=== PATIENT | female | born 1985 | race African-American/Black ===

== ENCOUNTER 2019-11-13 00:46 | Emergency (ER) | payer OTHER ==
[2019-11-13 01:42] VITALS: BMI 25.7
--- NOTE | 2019-11-13 02:19 | PDOC ---
History of Present Illness - General Chief Complaint: Cold Symptoms Stated Complaint: COUGHING,FEVER,HEADACHE,WEAK Time Seen by Provider: 11/13/19 02:11 Past History - Past Medical History Allergies/Adverse Reactions: Allergies Allergy/AdvReac Type Severity Reaction Status Date / Time No Known Allergies Allergy Verified 11/13/19 01:40 Home Medications: Ambulatory Orders NK [No Known Home Medication] 11/13/19 - Psycho Social/Smoking Cessation Hx Smoking History: Never smoked Have you smoked in the past 12 months: No Information on smoking cessation initiated: No Hx Alcohol Use: No Drug/Substance Use Hx: No *Physical Exam - Vital Signs Last Vital Signs Temp Pulse Resp BP Pulse Ox 98.0 F 69 20 116/75 100 11/13/19 01:05 11/13/19 01:05 11/13/19 01:05 11/13/19 01:05 11/13/19 01:05 ED Treatment Course - LABORATORY CBC & Chemistry Diagram: 11/13/19 03:20 11/13/19 03:20 Medical Decision Making - Medical Decision Making 11/13/19 02:50 HPI: 34yo F hx sickle cell disease, anemia, reflux, and HPV presents from home with 5 days of productive cough, fever, bitemporal pressure type headache intermittent improved with advil at 2030 today, generalized weakness, rhinorrhea , and slight chest discomfort only when coughs. Normal PO intake. +sick contacts (works as [employer]). Got flu shot this year. Denies recent travel. Appt with PCP Lencho Onofre at 1215 today but came in because couldn't deal with pain of headache. Only tried 1 advil at 2030 today with some improvement, no other meds tried. Denies sore throat, ear pain, dizziness, numbness/tingling, weakness , vision changes, shortness of breath, palpitations, leg swelling, abdominal pain, blood in stool, diarrhea, constipation, nausea, vomiting, dysuria, hematuria, confusion. ROS: Constitutional: Positive for fever, fatigue. Negative for diaphoresis. HENT: Positive for rhinorrhea, congestion. Negative for sore throat, ear pain. Eyes: Negative for visual disturbance. Respiratory: Positive for cough. Negative for shortness of breath, and wheezing. Cardiovascular: Positive for chest discomfort with cough. Negative for chest pain, palpitations, and leg swelling. Gastrointestinal: Negative for abdominal pain, blood in stool, constipation, diarrhea, nausea, and vomiting. Genitourinary: Negative for dysuria, flank pain, and hematuria. Musculoskeletal: Negative for myalgias, back pain, and neck pain. Skin: Negative for rash. Neurological: Positive for headache. Negative for light-headedness, dizziness, vertigo, syncope, weakness, numbness. Psychiatric/Behavioral: Negative for behavioral problems and confusion. PE: Gen: Alert, NAD, comfortable but tired-appearing. HEENT: PERRL, EOMI, MMM, NCAT. No conjunctival pallor. Sclera are non-icteric. Oropharynx is clear. CV: Regular rate and rhythm. No murmurs, rubs, or gallops. PULM: No resp distress. CTAB, no wheezes, rales, or rhonchi. ABD: soft, NT/ND, no rebound tenderness or guarding, no CVA tenderness. BACK: No TTP of c/t/l-spine. No step-offs or deformities. MSK: No bony deformities. 2+ pulses in all extremities. NEURO: AAOx3. PERRL. No gross CN deficits. Strength and sensation grossly intact throughout. EXTREMITIES: No cyanosis. No clubbing. No edema. No calf tenderness. PSYCH: Normal mood and thought pattern. SKIN: Warm and dry. Normal capillary refill. No rashes. No jaundice. MDM: 34yo F hx sickle cell disease, anemia, reflux, and HPV presents from home with 5 days of productive cough, fever, bitemporal pressure type headache intermittent improved with advil at 2030 today, generalized weakness, rhinorrhea , and slight chest discomfort only when coughs. Hemodynamically stable, afebrile , tired-appearing but otherwise benign exam. Ddx: most likely viral URI. Also consider bronchitis, PNA, metabolic derangement , anemia, ACS/WI, arrhythmia. No e/o acute chest or acute pain crises. -EKG -CXR -CBC,CMP,Mg,Phos,Cardiac profile -IVF -Pain management: tylenol -Dispo: pending workup and reassessment, likely d/c home 11/13/19 05:07 Labs reviewed. No concerning findings. EKG reviewed: sinus bradycardia, 57bpm, normal axis, normal intervals, no TWIs, no ST elevations or depressions, no prior EKG for comparison CXR reviewed: No acute pathology Pt improved s/p tylenol, wants to go home Will dc home with PCP f/u. Return precautions given. Pt understands all dc instructions and all questions were answered. Discharge - Discharge Information Problems reviewed: Yes Clinical Impression/Diagnosis: Cough Condition: Improved Disposition: HOME - Admission No - Follow up/Referral Referrals: Lencho Onofre MD [Primary Care Provider] - - Patient Discharge Instructions Patient Printed Discharge Instructions: DI for Viral Upper Respiratory Infection -- Adult Additional Instructions: You have been seen in the Emergency Department for your cough and headache. Your labs, EKG, and chest X-ray show no signs of an emergent condition such as pneumonia (lung infection) or heart attack. You most likely have a viral infection. At this time it's most important to stay hydrated and get plenty of rest. Follow-up with your primary care doctor within 1 week. Return to the Emergency Department immediately with any new or concerning symptoms including chest pain, difficulty breathing, coughing up blood, or passing out. - Post Discharge Activity Work/Back to School Note: Back to Work
--- NOTE | 2019-11-13 02:49 | PDOC ---
Attending Attestation - Resident Resident Name: Bhavya Yen - ED Attending Attestation I have performed the following: I have examined & evaluated the patient, The case was reviewed & discussed with the resident, I agree w/resident's findings & plan, Exceptions are as noted - HPI HPI: 11/19/19 20:01 See resident HPI - Physicial Exam PE: 11/19/19 20:01 Agree with documented exam - Medical Decision Making 11/19/19 20:01 34F hx of sickle trait? sick cell disease? here with 5 days of progressive illness characterized by productive cough, rhinorrhea, subjective fevers, generalized aches and weakness, and LUND that is slow onset, typical for her, non- exertional, improves with NSAIDs, MDM: 34yo F hx sickle cell disease, anemia, reflux, and HPV presents from home with 5 days of productive cough, fever, bitemporal pressure type headache intermittent improved with advil at 2030 today, generalized weakness, rhinorrhea , and slight chest discomfort only when coughs. Hemodynamically stable, afebrile , tired-appearing but otherwise benign exam. Sickle cell etiology unclear, hpi inconsistent with pain crisis, less concern for acute chest consider viral URI, pna, less likely acs, mi, metabolic, electorlyte derangement f/u cxr, labs symptomatic tx dispo per clinical course
[2019-11-13] MEDS ORDERED: ACETAMINOPHEN 1000 MG/100 ML VIAL (NON FORMULARY) IVPB ONE (03:04)
[2019-11-13] MEDS ORDERED: SODIUM CHLORIDE 0.9% 500 ML INFUS.BAG IV ONE (03:04)
[2019-11-13] MEDS ORDERED: ACETAMINOPHEN INJECTION 100 ML IVPB ONE (03:10)
[2019-11-13 03:52] LABS: BASO % 0.9 % (0-2.0); EOS % 2.3 % (0-4.5); HEMATOCRIT 34.9 % (32.4-45.2); HEMOGLOBIN 11.7 GM/dL (10.7-15.3); LYMPH % 34.7 % (8-40); MCH 27.5 pg (25.7-33.7); MCHC 33.6 g/dl (32.0-36.0); MEAN CELL VOLUME 81.9 fl (80-96); MEAN PLT VOLUME 8.3 fl (7.5-11.1); MONO % 17.9 % (3.8-10.2); NEUT % 44.2 % (42.8-82.8); PLATELET COUNT 233 K/MM3 (134-434); RBC 4.26 M/mm3 (3.60-5.2); RDW 13.9 % (11.6-15.6); WHITE BLOOD COUNT 3.3 K/mm3 (4.0-10.0)
[2019-11-13 04:20] LABS: ALBUMIN 3.9 g/dl (3.4-5.0); BILIRUBIN,TOTAL 0.1 mg/dL (0.2-1); BLOOD UREA NITROGEN 7.8 mg/dL (7-18); CALCIUM 8.6 mg/dL (8.5-10.1); MAGNESIUM 2.4 mg/dL (1.8-2.4); PHOSPHOROUS 3.5 mg/dL (2.5-4.9); POTASSIUM 4.3 mmol/L (3.5-5.1); TOT PROT 7.9 g/dl (6.4-8.2)
[2019-11-13 05:38] VITALS: BP 100/65; PULSE 62; TEMP 97.8
--- NOTE | 2019-11-13 12:26 | EKG ---
Test Reason : Blood Pressure : / mmHG Vent. Rate : 057 BPM Atrial Rate : 057 BPM P-R Int : 142 ms QRS Dur : 082 ms QT Int : 428 ms P-R-T Axes : 056 075 061 degrees QTc Int : 416 ms SINUS BRADYCARDIA NO PREVIOUS ECGS AVAILABLE Confirmed by CARLTON KAHN MD ([id number]) on 11/13/2019 12:26:06 PM Referred By: Confirmed By:CARLTON KAHN MD
== END 2019-11-13 05:45 | disposition home or self-care (01) ==
LOC: JER 00:46
PROC: 3E033NZ Introduction of Analgesics, Hypnotics, Sedatives into Peripheral Vein, Percutaneous Approach (ICD-10-PCS; principal; 2019-11-13)
DX: R05 Cough (principal); B97.89 Other viral agents as the cause of diseases classified elsewhere
CPT/HCPCS: 36415; 71046-TC-FY; 80053; 82550; 83735; 84100; 84484; 85025; 93005; 93010; 99285-25; J0131

== ENCOUNTER 2020-04-18 04:55 | Day surgery (SDC) | payer OTHER ==
[2020-04-15 12:12] VITALS: BMI 26.1
[2020-04-18] MEDS ORDERED: IBUPROFEN 400 MG TABLET (FP) PO PRN (10:45)
[2020-04-18] MEDS ORDERED: ACETAMINOPHEN 325 MG TABLET (FP) PO PRN (10:45)
[2020-04-18] MEDS ORDERED: oxyCODONE HCL 5 MG TABLET PO PRN ×2 (10:45→14:11)
--- NOTE | 2020-04-18 10:46 | HP ---
History & Physical Update - History History: No Change - Physical Physical: No Change - Assessment Assessment: No Change - Plan Plan: No Change (No Change HP)
[2020-04-18] MEDS ORDERED: SUCCINYLCHOLINE CHLORIDE 200 MG/10 ML SYRINGE ONE (13:07)
[2020-04-18] MEDS ORDERED: MIDAZOLAM HCL 2 MG/2 ML SINGLE DOSE VIAL ONE (13:07)
[2020-04-18] MEDS ORDERED: PROPOFOL 20 ML ONE (13:07)
[2020-04-18] MEDS ORDERED: KETOROLAC TROMETHAMINE 30 MG/1 ML VIAL ONE (13:36)
[2020-04-18] MEDS ORDERED: DEXAMETHASONE SOD PHOSPHATE 4 MG/1 ML VIAL ONE (13:36)
[2020-04-18] MEDS ORDERED: ONDANSETRON 4 MG/2 ML VIAL IVPUSH PRN (14:11)
[2020-04-18] MEDS ORDERED: LACTATED RINGERS SOLUTION 1,000 ML IV SCH (14:15)
[2020-04-18 17:00] VITALS: BP 108/61; PULSE 56; TEMP 97.7
--- NOTE | 2020-04-20 18:03 | PATH ---
Surgical Pathology Report Patient Name: YANELI NATION [facility]. Rec. #: [id number] /Age/Gender: 1985 (Age: 35) / F Account: [id number] Location: [facility] Taken: 04/18/2020 Received: 04/19/2020 Reported: 04/20/2020 Physicians: Elissa Schreiber M.D. Specimen(s) Received CONTENT OF UTERUS Clinical History Endometrial polyp/fibroid Final Diagnosis CONTENTS OF UTERUS, HYSTEROSCOPIC MYOMECTOMY, SUCTION DILATION AND CURETTAGE: 1G, FRAGMENTS OF ENDOMETRIAL POLYP, SECRETORY ENDOMETRIUM, AND FIBROMUSCULAR TISSUE CONSISTENT WITH SUBMUCOSAL LEIOMYOMA. Electronically Signed Suzanne Jo M.D. Addendum Reported: 04/21/2020 Addendum Diagnosis Additional scant fragments of benign cervical tissue are noted. Suzanne Jo M.D. Gross Description Received in formalin labeled "contents of uterus," is a 1 g, 3.0 x 2.5 x 0.4 cm aggregate of paris soft tissue fragments. The formalin is filtered and the specimen is entirely submitted in 2 cassettes. DL/04/19/2020 saudi/04/19/2020
--- NOTE | 2020-04-27 17:20 | OP ---
DATE OF OPERATION: 04/18/2020 PREOPERATIVE DIAGNOSIS: Endometrial polyp. OPERATION: Hysteroscopic myomectomy, suction dilatation and curettage. POSTOPERATIVE DIAGNOSIS: Endometrial polyp. SURGEON: Elissa Schreiber MD ESTIMATED BLOOD LOSS: Approximately 20 mL. DESCRIPTION OF PROCEDURE: Patient was taken to the operating room, placed in dorsal lithotomy position, prepped and draped in the usual sterile fashion. Timeout was performed in accordance with hospital regulation. Speculum was placed in the vagina. Anterior lip of the cervix was grasped with single-tooth tenaculum. Cervix then dilated to accommodate the operative hysteroscope. Visualization revealed a large endometrial polyp. Cautery and cutting of the polyp was done. Specimen was submitted to pathology, followed by suction D and C. Patient had tolerated the procedure well, was taken to recovery room in stable condition after all instruments were removed. ELISSA SCHREIBER M.D. [id number]
== END 2020-04-18 16:35 | disposition home or self-care (01) ==
LOC: JASU-SURG 04:55
PROVIDERS: ATTEND Obstetrics & Gynecology
PROC: 0UJD8ZZ Inspection of Uterus and Cervix, Via Natural or Artificial Opening Endoscopic (ICD-10-PCS; 2020-04-18)
PROC: 0UB98ZZ Excision of Uterus, Via Natural or Artificial Opening Endoscopic (ICD-10-PCS; principal; 2020-04-18 12:00)
PROC: 0UDB7ZX Extraction of Endometrium, Via Natural or Artificial Opening, Diagnostic (ICD-10-PCS; 2020-04-18 12:00)
DX: N84.0 Polyp of corpus uteri (principal); D25.0 Submucous leiomyoma of uterus
CPT/HCPCS: 88305-TC; 94760

== ENCOUNTER 2021-03-13 03:40 | Emergency (ER) | payer OTHER ==
[2021-03-13 03:54] VITALS: BMI 25.7
[2021-03-13] MEDS ORDERED: SODIUM CHLORIDE 1,000 ML IV STA (04:13)
[2021-03-13] MEDS ORDERED: morphine CARPU-JECT 2 MG/1 ML DISP.SYRIN IVPUSH ONE (04:31)
[2021-03-13 04:36] LABS: BASO % 0.8 % (0-2.0); EOS % 2.1 % (0-4.5); HEMATOCRIT 38.2 % (32.4-45.2); HEMOGLOBIN 13.3 GM/dL (10.7-15.3); LYMPH % 25.1 % (8-40); MCH 28.9 pg (25.7-33.7); MCHC 34.8 g/dl (32.0-36.0); MEAN CELL VOLUME 82.9 fl (80-96); MEAN PLT VOLUME 8.2 fl (7.5-11.1); MONO % 13.1 % (3.8-10.2); NEUT % 58.9 % (42.8-82.8); PLATELET COUNT 198 K/MM3 (134-434); RDW 12.8 % (11.6-15.6); WHITE BLOOD COUNT 5.3 K/mm3 (4.0-10.0)
[2021-03-13 04:48] LABS: INR 0.92 (0.83-1.09); PROTHROMBIN TIME (PATIENT) 11.3 SEC (9.7-13.0)
[2021-03-13 04:50] LABS: ACTIVATED PTT 26.3 SECONDS (25.2-36.5)
[2021-03-13] MEDS ORDERED: MORPHINE SULFATE 2 MG/ML VIAL ONE (04:52)
[2021-03-13 04:57] LABS: ALBUMIN 3.9 g/dl (3.4-5.0); BLOOD UREA NITROGEN 11.6 mg/dL (7-18); CALCIUM 9.1 mg/dL (8.5-10.1)
[2021-03-13 05:00] LABS: CREATININE 0.9 mg/dL (0.55-1.3)
[2021-03-13 05:02] LABS: BILIRUBIN,TOTAL 0.3 mg/dL (0.2-1); TOT PROT 7.8 g/dl (6.4-8.2)
[2021-03-13 07:02] LABS: EPI CELLS 2 /uL (0-25.1); HYALINE CASTS 0 /uL (0-3.1); PH,URINE 6.5 (5.0-8.0); URINE APPEARANCE CLEAR; URINE BACTERIA 10 /uL (0-1359); URINE BILIRUBIN NEGATIVE (NEGATIVE); URINE COLOR YELLOW; URINE GLUCOSE (UA) NEGATIVE (NEGATIVE); URINE KETONE NEGATIVE (NEGATIVE); URINE LEUK ESTERASE NEGATIVE (NEGATIVE); URINE NITRITE NEGATIVE (NEGATIVE); URINE PROTEIN NEGATIVE (NEGATIVE); URINE RBC 21 /uL (0-23.9); URINE UROBILINOGEN 0.2 mg/dL (0.2-1.0); URINE WBC 1 /uL (0-25.8)
[2021-03-13 10:49] VITALS: BP 95/55; PULSE 62; TEMP 98.4
== END 2021-03-13 10:55 | disposition home or self-care (01) ==
LOC: JER 03:40
PROC: 3E033NZ Introduction of Analgesics, Hypnotics, Sedatives into Peripheral Vein, Percutaneous Approach (ICD-10-PCS; principal; 2021-03-13)
PROC: 3E0337Z Introduction of Electrolytic and Water Balance Substance into Peripheral Vein, Percutaneous Approach (ICD-10-PCS; 2021-03-13)
DX: N93.8 Other specified abnormal uterine and vaginal bleeding (principal)
CPT/HCPCS: 36415; 76830-TC; 80053; 81003; 83690; 84703; 85025; 85610; 85730; 86850; 86900; 86901; 87077; 87086; 99284-25

== ENCOUNTER 2021-04-06 21:27 | Observation (INO) | payer OTHER ==
[2021-04-06 21:38] VITALS: BMI 26.6
[2021-04-06] MEDS ORDERED: SODIUM CHLORIDE 0.9% 1000 ML INFUS.BAG IV ONE (21:58)
[2021-04-06] MEDS ORDERED: morphine CARPU-JECT 4 MG/1 ML DISP.SYRIN IVPUSH ONE (21:58)
[2021-04-06] MEDS ORDERED: ONDANSETRON 4 MG/2 ML VIAL IVPUSH ONE (21:58)
[2021-04-06] MEDS ORDERED: morphine SULFATE 4 MG/ML VIAL ONE (22:08)
[2021-04-06] MEDS ORDERED: ONDANSETRON 4 MG/2 ML VIAL ONE (22:08)
[2021-04-06 22:21] LABS: BASO % 0.8 % (0-2.0); EOS % 0.6 % (0-4.5); HEMATOCRIT 39.7 % (32.4-45.2); HEMOGLOBIN 13.4 GM/dL (10.7-15.3); LYMPH % 19.2 % (8-40); MCH 28.5 pg (25.7-33.7); MCHC 33.8 g/dl (32.0-36.0); MEAN CELL VOLUME 84.1 fl (80-96); MEAN PLT VOLUME 8.1 fl (7.5-11.1); MONO % 9.3 % (3.8-10.2); NEUT % 70.1 % (42.8-82.8); PLATELET COUNT 205 10^3/uL (134-434); RBC 4.71 M/mm3 (3.60-5.2); WHITE BLOOD COUNT 7.1 K/mm3 (4.0-10.0)
[2021-04-06 22:52] LABS: ALBUMIN 4.2 g/dl (3.4-5.0); BLOOD UREA NITROGEN 13.7 mg/dL (7-18)
[2021-04-06 22:55] LABS: CREATININE 1.2 mg/dL (0.55-1.3)
[2021-04-06 22:57] LABS: BILIRUBIN,TOTAL 0.2 mg/dL (0.2-1)
[2021-04-06] MEDS ORDERED: KETOROLAC TROMETHAMINE 15 MG/ML VIAL ONE (23:22)
[2021-04-06 23:26] LABS: EPI CELLS 3 /uL (0-25.1); HYALINE CASTS 0 /uL (0-3.1); PH,URINE >= 9.0 (5.0-8.0); URINE APPEARANCE CLEAR; URINE BACTERIA 20 /uL (0-1359); URINE BILIRUBIN NEGATIVE (NEGATIVE); URINE COLOR YELLOW; URINE GLUCOSE (UA) NEGATIVE (NEGATIVE); URINE KETONE NEGATIVE (NEGATIVE); URINE LEUK ESTERASE NEGATIVE (NEGATIVE); URINE NITRITE NEGATIVE (NEGATIVE); URINE PROTEIN NEGATIVE (NEGATIVE); URINE RBC 50 /uL (0-23.9); URINE UROBILINOGEN 0.2 mg/dL (0.2-1.0); URINE WBC 1 /uL (0-25.8)
[2021-04-06] MEDS ORDERED: KETOROLAC TROMETHAMINE 15 MG/ML VIAL IVPUSH ONE (23:33)
[2021-04-07] MEDS ORDERED: SODIUM CHLORIDE 1,000 ML IV SCH (02:45)
[2021-04-07 12:31] LABS: BASO % 0.5 % (0-2.0); EOS % 0.5 % (0-4.5); HEMATOCRIT 35.2 % (32.4-45.2); HEMOGLOBIN 11.8 GM/dL (10.7-15.3); LYMPH % 16.1 % (8-40); MCH 28.4 pg (25.7-33.7); MCHC 33.5 g/dl (32.0-36.0); MEAN CELL VOLUME 84.6 fl (80-96); MEAN PLT VOLUME 8.8 fl (7.5-11.1); NEUT % 71.9 % (42.8-82.8); PLATELET COUNT 170 10^3/uL (134-434); RBC 4.15 M/mm3 (3.60-5.2); RDW 13.2 % (11.6-15.6)
[2021-04-07] MEDS: DEXTROSE 5%-0.45% SALINE 1,000 ML IV SCH (12:38)
[2021-04-07 12:57] LABS: ALBUMIN 3.4 g/dl (3.4-5.0)
[2021-04-07 12:59] LABS: CALCIUM 8.3 mg/dL (8.5-10.1)
[2021-04-07 13:00] LABS: CREATININE 0.9 mg/dL (0.55-1.3)
[2021-04-07 13:01] LABS: BILIRUBIN,TOTAL 0.6 mg/dL (0.2-1); TOT PROT 6.6 g/dl (6.4-8.2)
[2021-04-07] MEDS: ACETAMINOPHEN 1000 MG/100 ML VIAL (NON FORMULARY) IVPB PRN (16:23)
[2021-04-07] MEDS: POLYETHYLENE GLYCOL (HEALTHYLAX) 3350 17 GM PACKET PO SCH ×2 (16:24→21:18)
[2021-04-08] MEDS: DEXTROSE 5%-0.45% SALINE 1,000 ML IV SCH ×3 (05:51→17:28)
[2021-04-08] MEDS: POLYETHYLENE GLYCOL (HEALTHYLAX) 3350 17 GM PACKET PO SCH ×3 (05:51→22:20)
[2021-04-08 08:10] LABS: BASO % 0.9 % (0-2.0); EOS % 3.2 % (0-4.5); HEMATOCRIT 32.6 % (32.4-45.2); HEMOGLOBIN 11.1 GM/dL (10.7-15.3); LYMPH % 36.1 % (8-40); MCH 28.7 pg (25.7-33.7); MEAN CELL VOLUME 84.5 fl (80-96); MEAN PLT VOLUME 8.3 fl (7.5-11.1); MONO % 14.2 % (3.8-10.2); NEUT % 45.6 % (42.8-82.8); PLATELET COUNT 161 10^3/uL (134-434); RBC 3.86 M/mm3 (3.60-5.2); RDW 13.3 % (11.6-15.6); WHITE BLOOD COUNT 2.6 K/mm3 (4.0-10.0)
[2021-04-08 08:37] LABS: CALCIUM 8.3 mg/dL (8.5-10.1)
[2021-04-08 08:38] LABS: ALBUMIN 3.2 g/dl (3.4-5.0); BLOOD UREA NITROGEN 8.2 mg/dL (7-18)
[2021-04-08 08:40] LABS: CREATININE 0.9 mg/dL (0.55-1.3)
[2021-04-08 08:42] LABS: BILIRUBIN,TOTAL 0.6 mg/dL (0.2-1); TOT PROT 6.5 g/dl (6.4-8.2)
[2021-04-08] MEDS ORDERED: PT OWN MED DRAWER 7, Y5N ONE (09:35)
[2021-04-08] MEDS: FOLIC ACID 1 MG TABLET (FP) PO SCH (09:54)
[2021-04-08] MEDS: PANTOPRAZOLE 40 MG TABLET PO SCH (09:54)
[2021-04-08] MEDS: MAGNESIUM CITRATE 300 ML BOTTLE PO SCH ×2 (09:54→22:20)
[2021-04-08] MEDS: ASCORBIC ACID 500 MG TABLET (FP) PO SCH (09:54)
[2021-04-08] MEDS: FERROUS SO4 325 MG TABLET (FP) PO SCH (09:54)
[2021-04-08] MEDS ORDERED: FOLIC ACID 1 MG TABLET (FP) PO SCH (10:00)
[2021-04-08] MEDS ORDERED: PATIENT'S OWN MEDICATION (NON-FORMULARY) (Ferrous Sulfate [Iron] 325 MG Tablet) PO SCH (10:00)
[2021-04-08] MEDS: ACETAMINOPHEN 1000 MG/100 ML VIAL (NON FORMULARY) IVPB PRN (10:01)
[2021-04-08] MEDS: SODIUM PHOSPHATE/NA BIPHOS 133 ML ENEMA RC SCH ×4 (10:22→21:00)
[2021-04-08] MEDS ORDERED: KETOROLAC TROMETHAMINE 60 MG/2 ML VIAL IVPUSH ONE (13:31)
[2021-04-08] MEDS ORDERED: ACETAMINOPHEN 1000 MG/100 ML VIAL (NON FORMULARY) IVPB PRN (21:30)
[2021-04-09] MEDS: POLYETHYLENE GLYCOL (HEALTHYLAX) 3350 17 GM PACKET PO SCH ×2 (06:23→13:45)
[2021-04-09] MEDS ORDERED: PT OWN MED DRAWER 7, Y5N ONE ×2 (10:13→17:23)
[2021-04-09] MEDS: PANTOPRAZOLE 40 MG TABLET PO SCH (10:17)
[2021-04-09] MEDS: ASCORBIC ACID 500 MG TABLET (FP) PO SCH (10:17)
[2021-04-09] MEDS: FOLIC ACID 1 MG TABLET (FP) PO SCH (10:17)
[2021-04-09] MEDS: FERROUS SO4 325 MG TABLET (FP) PO SCH (10:17)
[2021-04-09] MEDS: LIPASE/PROTEASE/AMYLASE 36,000 UNIT CAPSULE PO SCH ×2 (13:45→17:28)
[2021-04-09] MEDS ORDERED: metroNIDAZOLE 250 MG TABLET PO SCH (14:00)
[2021-04-09 14:27] VITALS: TEMP 98.2
[2021-04-09 20:16] VITALS: BP 111/69; PULSE 63
== END 2021-04-09 19:08 | disposition home or self-care (01) ==
LOC: JER 21:27 → UNDOADMOB 04-07 02:49 → INTOOBSV 04-07 02:49 → JERBED 04-07 02:49 → J8W 04-07 09:14 → JERBED 04-07 13:05 → J8W 04-07 13:05
PROVIDERS: ADMIT Internal Medicine; ATTEND Internal Medicine
PROC: 3E0337Z Introduction of Electrolytic and Water Balance Substance into Peripheral Vein, Percutaneous Approach (ICD-10-PCS; principal; 2021-04-07)
PROC: 3E033GC Introduction of Other Therapeutic Substance into Peripheral Vein, Percutaneous Approach (ICD-10-PCS; 2021-04-07)
PROC: 3E033NZ Introduction of Analgesics, Hypnotics, Sedatives into Peripheral Vein, Percutaneous Approach (ICD-10-PCS; 2021-04-07)
DX: K56.41 Fecal impaction (principal); K56.609 Unspecified intestinal obstruction, unspecified as to partial versus complete obstruction; D50.9 Iron deficiency anemia, unspecified; K21.9 Gastro-esophageal reflux disease without esophagitis; K29.70 Gastritis, unspecified, without bleeding; K29.80 Duodenitis without bleeding; K44.9 Diaphragmatic hernia without obstruction or gangrene; D57.3 Sickle-cell trait; D21.9 Benign neoplasm of connective and other soft tissue, unspecified; R10.2 Pelvic and perineal pain; N83.209 Unspecified ovarian cyst, unspecified side; R10.30 Lower abdominal pain, unspecified; Z91.013 Allergy to seafood; Z91.018 Allergy to other foods
CPT/HCPCS: 36415; 74021-TC-FY; 74177-TC; 76830-TC; 80053; 81003; 84703; 85025; 85730; 86850; 86900; 86901; 99285-25; C9803; G0378; J0131; U0003; U0005

== ENCOUNTER 2022-01-31 20:06 | Emergency (ER) | payer OTHER ==
[2022-01-31 20:10] VITALS: BP 142/89; PULSE 84; TEMP 97.5; BMI 25.7
[2022-01-31] MEDS ORDERED: KETOROLAC TROMETHAMINE 30 MG/1 ML VIAL IM ONE (23:19)
[2022-01-31] MEDS ORDERED: KETOROLAC TROMETHAMINE 30 MG/1 ML VIAL ONE (23:31)
== END 2022-02-01 00:23 | disposition home or self-care (01) ==
LOC: JERFT 20:06
PROC: 3E0233Z Introduction of Anti-inflammatory into Muscle, Percutaneous Approach (ICD-10-PCS; principal; 2022-01-31)
DX: S99.911A Unspecified injury of right ankle, initial encounter (principal); X50.0XXA Overexertion from strenuous movement or load, initial encounter; Y93.02 Activity, running
CPT/HCPCS: 73610-TC-RT-FY; 99284-25